=== PATIENT | female | born 1980 | race Caucasian/White ===

== ENCOUNTER 2018-02-02 16:33 | Emergency (ER) | payer BC ==
[2018-02-02] MEDS ORDERED: NA CHLORIDE 0.9% 1,000 ML ONE (16:48)
[2018-02-02 17:11] LABS: Absolute Lymphocytes (CBC) 3.8 K/uL (0.7-4.9); Absolute Monocytes 0.5 K/uL (0.1-1.3); Basophils % 0.6 % (0-1.3); Eosinophils % 1.5 % (0-4.4); Hematocrit 39.1 % (36.0-45.0); Lymphocytes % 45.1 % (15.3-44.8); MCH 28.4 pg (27.0-35.0); MCV 85.8 fL (80-100); Monocytes % 5.6 % (3.3-12.3); RBC Red Blood Cell Count 4.56 M/uL (3.86-4.86)
[2018-02-02 17:12] LABS: Protime INR 1.03
--- NOTE | 2018-02-02 17:13 | RAD REPORT ---
EXAM DESCRIPTION: CT - Head Brain Wo Cont - 02/02/2018 5:03 pm CLINICAL HISTORY: Syncope with head injury COMPARISON: None. TECHNIQUE: Computed axial tomography of the head was obtained. IV contrast was not requested. All CT scans are performed using dose optimization technique as appropriate and may include automated exposure control or mA/KV adjustment according to patient size. FINDINGS: An intracranial bleed is not seen . The ventricles are normal in caliber. No extra-axial fluid collection is noted. Fluid within the sinuses/ mastoids is not seen. IMPRESSION: No acute intracranial abnormality is seen. If patient's symptoms persist MRI of the bra in would be recommended.
[2018-02-02 17:18] LABS: Potassium 3.6 mEq/L (3.6-5.0)
[2018-02-02 17:21] LABS: CKMB Creatine Kinase MB 0.7 ng/ml (0.3-4.0); Magnesium 2.1 mg/dL (1.8-2.5)
--- NOTE | 2018-02-02 17:54 | EKG ---
Test Date: 2018-02-02 Test Time: 16:40:23 Ingredient Mixer: CAMILLE MEASUREMENT RESULTS: Intervals: Rate: 68 VA: 146 QRSD: 90 QT: 392 QTc: 416 [place]: P: 65 VA: 146 QRS: 73 T: 54 INTERPRETIVE STATEMENTS: Normal sinus rhythm Normal ECG Compared to ECG 01/04/2017 03:01:10 No significant changes Electronically Signed On 02-02-18 17:54:17 CDT by Damir Rene
[2018-02-02] MEDS ORDERED: ONDANSETRON 4 MG/2 ML VIAL ONE (18:06)
[2018-02-02 18:21] LABS: Urine Bacteria 20-50 /HPF (<20); Urine Culture Reflex Order REFLEXED; Urine Mucus 1+ /HPF (NONE SEEN); Urine RBC <5 /HPF (NONE SEEN)
--- NOTE | 2018-02-02 18:26 | EDPHYS ---
Physician Documentation [facility] Name: Malorie Boucher Age: 37 yrs Sex: Female : 1980 Arrival Date: 02/02/2018 Time: 16:34 Bed 4 Private MD: ED Physician Cristiano Mosher HPI: 02/02 16:43 This 37 yrs old Female presents to ER via EMS with complaints of Syncope. rn 16:43 The patient has experienced syncope. Onset: The symptoms/episode began/occurred just rn prior to arrival. Duration: This was a single episode. Associated signs and symptoms: Pertinent positives: diaphoresis, dizziness, lightheadedness. The patient has experienced a previous episode. Reports at urgent care, thought had UTI, told urine was clean, was sitting on bed, had syncopal episode, hit head on floor, on way here, had near syncopal episode and noted to be bradycardic, diaphoretic, and pale, currently only reports nausea. . 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 tw2 Historical: - Allergies: 16:38 PENICILLINS (rash); iw - Home Meds: 16:38 Latuda 20 mg Oral tab 1 tab once daily for Depression associated with Bipolar Disorder iw [Active]; Prozac 40 mg Oral cap 1 cap once daily for Depression associated with Bipolar Disorder, Adjunct Treatment [Active]; 16:55 Adderall XR 20 mg Oral cp24 1 cap daily may take up to 2 daily for Bipolar Disorder per tw2 patient [Active]; - PMHx: 16:38 Bipolar disorder; iw - PSHx: 16:38 Hysterectomy; Brest Reduction x2; Tear Duct Probing; Tumor Removal right ovary; iw - Immunization history:: Adult Immunizations up to date. - Family history:: not pertinent. - Social history:: Smoking status: Patient/guardian denies using tobacco. - Hospitalizations: : No recent hospitalization is reported. ROS: 16:43 Constitutional: Negative for fever, chills, and weight loss, Eyes: Negative for injury, rn pain, redness, and discharge, Cardiovascular: Negative for chest pain, palpitations, and edema, Respiratory: Negative for shortness of breath, cough, wheezing, and pleuritic chest pain, Abdomen/GI: Negative for abdominal pain, vomiting, diarrhea, and constipation, MS/Extremity: Negative for injury and deformity, Skin: Negative for injury, rash, and discoloration, Neuro: Negative for weakness, numbness, tingling, and seizure. Exam: 16:43 Constitutional: This is a well developed, well nourished patient who is awake, alert, rn pale and squinting eyes Head/Face: Normocephalic, atraumatic. Eyes: Pupils equal round and reactive to light, extra-ocular motions intact. Lids and lashes normal. Conjunctiva and sclera are non-icteric and not injected. Cornea within normal limits. Periorbital areas with no swelling, redness, or edema. ENT: pale lips Neck: Trachea midline, no thyromegaly or masses palpated, and no cervical lymphadenopathy. Supple, full range of motion without nuchal rigidity, or vertebral point tenderness. No Meningismus. Cardiovascular: Regular rate and rhythm with a normal S1 and S2. No gallops, murmurs, or rubs. Normal PMI, no JVD. No pulse deficits. Respiratory: Lungs have equal breath sounds bilaterally, clear to auscultation and percussion. No rales, rhonchi or wheezes noted. No increased work of breathing, no retractions or nasal flaring. Abdomen/GI: Soft, non-tender, with normal bowel sounds. No distension or tympany. No guarding or rebound. No evidence of tenderness throughout. Skin: Warm, dry with normal turgor. Normal color with no rashes, no lesions, and no evidence of cellulitis. MS/ Extremity: Pulses equal, no cyanosis. Neurovascular intact. Full, normal range of motion. Equal circumference. Neuro: Awake and alert, GCS 15, oriented to person, place, time, and situation. Cranial nerves II-XII grossly intact. Motor strength 5/5 in all extremities. Sensory grossly intact. Cerebellar exam normal. 18:27 ECG was reviewed by the Attending Physician. rn Vital Signs: 16:39 BP 114 / 75; Pulse 79; Resp 16 S; Temp 97.6; Pulse Ox 100% on R/A; iw 17:30 BP 103 / 71; Pulse 71; Resp 19; Pulse Ox 100% on R/A; tw2 18:19 BP 122 / 73; Pulse 75; Resp 18; Pulse Ox 100% on R/A; hb MDM: 16:36 Patient medically screened. rn 18:16 Differential Diagnosis: vasovagal episode. Data reviewed: vital signs, nurses notes, rn integrity test result(s), EKG, radiologic studies, CT scan, and as a result, I will discharge patient. 18:23 Counseling: I had a detailed discussion with the patient and/or guardian regarding: the rn historical points, exam findings, and any diagnostic results supporting the discharge/admit diagnosis, lab results, radiology results, the need for outpatient follow up, to return to the emergency department if symptoms worsen or persist or if there are any questions or concerns that arise at home. Response to treatment: the patient's symptoms have markedly improved after treatment, and as a result, I will discharge patient. Special discussion: I discussed with the patient/guardian in detail that at this point there is no indication for admission to the hospital. It is understood, however, that if the symptoms persist or worsen the patient needs to return immediately for re-evaluation. ED course: Pt feels improved, ambulatory, no abnormal vitals, urine negative except for trace blood, only symptoms are increased urinary frequency, will treat as UTI/urethritis, offered observation for syncope, patient opts to go home, has headache but negative ct scan of brain. Return precautions given and understood. . 02/02 16:42 Order name: Urine Microscopic Only rn 02/02 16:42 Order name: Basic Metabolic Panel; Complete Time: 17:34 rn 02/02 16:42 Order name: BNP; Complete Time: 17:34 rn 02/02 16:42 Order name: CBC with Diff; Complete Time: 17:34 02/02 16:42 Order name: Ckmb; Complete Time: 17:34 rn 02/02 16:42 Order name: CPK; Complete Time: 17:34 rn 02/02 16:42 Order name: CT Head Brain wo Cont; Complete Time: 17:15 02/02 16:42 Order name: Magnesium; Complete Time: 17:34 rn 02/02 16:42 Order name: Protime (+inr); Complete Time: 17:34 rn 02/02 16:42 Order name: Ptt, Activated; Complete Time: 17:34 rn 02/02 16:42 Order name: Troponin (emerg Dept Use Only); Complete Time: 17:34 02/02 16:42 Order name: EKG; Complete Time: 16:43 02/02 16:42 Order name: Cardiac monitoring; Complete Time: 16:48 rn 02/02 16:42 Order name: EKG - Nurse/Tech; Complete Time: 16:46 rn 02/02 16:42 Order name: IV Saline Lock; Complete Time: 16:46 rn 02/02 16:42 Order name: Labs collected and sent; Complete Time: 16:47 rn 02/02 16:42 Order name: NPO; Complete Time: 16:47 rn 02/02 16:42 Order name: O2 Per Protocol; Complete Time: 16:47 rn 02/02 16:42 Order name: O2 Sat Monitoring; Complete Time: 16:47 rn 02/02 16:42 Order name: Urine Dipstick-Ancillary (obtain specimen); Complete Time: 18:02 rn EC:27 Rate is 68 beats/min. Rhythm is regular. QRS [place] is Normal. TN interval is normal. QRS rn interval is normal. QT interval is normal. No Q waves. T waves are Normal. No ST changes noted. Clinical impression: Normal ECG. Interpreted by me. Administered Medications: 16:51 Drug: NS 0.9% 1000 ml Route: IV; Rate: 1000 ml; Site: right antecubital; iw 18:02 Follow up: IV Status: Completed infusion; IV Intake: 1000ml tw2 18:19 Drug: Zofran 4 mg Route: IVP; Site: right antecubital; hb 18:28 Follow up: Response: No adverse reaction; Nausea is decreased tw2 18:30 Drug: Cipro 500 mg Route: PO; tw2 18:46 Follow up: Response: No adverse reaction tw2 Point of Care Testing: Blood Glucose: 16:46 Blood Glucose: 103 mg/dL; iw Ranges: Critical Glucose Levels:Adult <50 mg/dl or >400 mg/dl <40 mg/dl or >180 mg/dl Disposition: 02/02/18 18:25 Discharged to Home. Impression: Syncope and collapse. - Condition is Stable. - Discharge Instructions: Syncope, Urethritis, Adult. - Prescriptions for Cipro 500 mg Oral Tablet - take 1 tablet by ORAL route every 12 hours for 10 days; 20 tablet. - Medication Reconciliation Form, Thank You Letter, Antibiotic Education, Prescription Opioid Use, Work release form, Family Work Release form. - Follow up: Private Physician; When: As needed; Reason: Recheck today's complaints, Re-evaluation by your physician. - Problem is new. - Symptoms have improved. Signatures: Dispatcher [employer] Joanna Sanchez, RN Cristiano Love MD MD rn Baxter, Heather, RN RN hb Wise, Tara, RN RN tw2 Corrections: (The following items were deleted from the chart) 18:47 18:25 02/02/2018 18:25 Discharged to Home. Impression: Syncope and collapse. Condition tw2 is Stable. Forms are Medication Reconciliation Form, Thank You Letter, Antibiotic Education, Prescription Opioid Use. Follow up: Private Physician; When: As needed; Reason: Recheck today's complaints, Re-evaluation by your physician. Problem is new. Symptoms have improved. rn
--- NOTE | 2018-02-02 18:26 | ER ---
Nurse's Notes [facility] Name: Malorie Boucher Age: 37 yrs Sex: Female : 1980 Arrival Date: 02/02/2018 Time: 16:34 Bed 4 Private MD: Diagnosis: Syncope and collapse Presentation: 02/02 16:35 Presenting complaint: EMS states: pt was at urgent care, was being seen for UTI, pt had iw syncopal episode and fell off exam table, pt hit head on floor, staff states pt was awake when they went in room, EMS reports pt was hypotensive at 80s systolic, diaphoretic, cool, clammy, pt A\T\OX4, symptoms resolving, RH=586/75 upon arrival to ER. Transition of care: patient was not received from another setting of care. Onset of symptoms was February 02, 2018. Initial Sepsis Screen: Does the patient meet any 2 criteria? No. Patient's initial sepsis screen is negative. Does the patient have a suspected source of infection? No. Patient's initial sepsis screen is negative. Care prior to arrival: Glucose check: 85. 16:35 Method Of Arrival: EMS: [facility] iw 16:35 Acuity: SABAS 3 iw Triage Assessment: 16:58 General: Appears in no apparent distress. Neuro: Reports a syncopal episode. 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 tw2 Historical: - Allergies: 16:38 PENICILLINS (rash); iw - Home Meds: 16:38 Latuda 20 mg Oral tab 1 tab once daily for Depression associated with Bipolar Disorder iw [Active]; Prozac 40 mg Oral cap 1 cap once daily for Depression associated with Bipolar Disorder, Adjunct Treatment [Active]; 16:55 Adderall XR 20 mg Oral cp24 1 cap daily may take up to 2 daily for Bipolar Disorder per tw2 patient [Active]; - PMHx: 16:38 Bipolar disorder; iw - PSHx: 16:38 Hysterectomy; Brest Reduction x2; Tear Duct Probing; Tumor Removal right ovary; iw - Immunization history:: Adult Immunizations up to date. - Family history:: not pertinent. - Social history:: Smoking status: Patient/guardian denies using tobacco. - Hospitalizations: : No recent hospitalization is reported. Screenin:54 Abuse screen: Denies threats or abuse. Nutritional screening: No deficits noted. tw2 Tuberculosis screening: No symptoms or risk factors identified. Fall Risk None identified. Assessment: 16:55 General: Appears in no apparent distress. obese, Behavior is calm, cooperative, tw2 appropriate for age. Pain: Complains of pain in scalp. Neuro: Level of Consciousness is awake, alert, obeys commands, Oriented to person, place, time, situation. Cardiovascular: Denies chest pain, shortness of breath, Heart tones S1 S2 Capillary refill < 3 seconds Patient's skin is warm and dry. Rhythm is regular. Respiratory: Airway is patent Respiratory effort is even, unlabored, Respiratory pattern is regular, symmetrical, Breath sounds are clear bilaterally. GI: No signs and/or symptoms were reported involving the gastrointestinal system. Abdomen is flat, Bowel sounds present X 4 quads. : No signs and/or symptoms were reported regarding the genitourinary system. EENT: No signs and/or symptoms were reported regarding the EENT system. Derm: No signs and/or symptoms reported regarding the dermatologic system. Skin is intact, is healthy with good turgor, Skin temperature is warm. Musculoskeletal: Range of motion: intact in all extremities. 17:30 Reassessment: Patient appears in no apparent distress at this time. No changes from tw2 previously documented assessment. Patient and/or family updated on plan of care and expected duration. Pain level reassessed. Patient is alert, oriented x 3, equal unlabored respirations, skin warm/dry/pink. 18:19 Reassessment: Patient appears in no apparent distress at this time. No changes from hb previously documented assessment. Patient and/or family updated on plan of care and expected duration. Pain level reassessed. Patient is alert, oriented x 3, equal unlabored respirations, skin warm/dry/pink. Vital Signs: 16:39 BP 114 / 75; Pulse 79; Resp 16 S; Temp 97.6; Pulse Ox 100% on R/A; iw 17:30 BP 103 / 71; Pulse 71; Resp 19; Pulse Ox 100% on R/A; tw2 18:19 BP 122 / 73; Pulse 75; Resp 18; Pulse Ox 100% on R/A; hb ED Course: 16:34 Patient arrived in ED. iw 16:35 Arm band placed on. tw2 16:35 Placed in gown. Bed in low position. Side rails up X2. groundwater monitoring technician on. Pulse ox on. tw2 NIBP on. Warm blanket given. 16:36 Cristiano Mosher MD is Attending Physician. rn 16:37 Triage completed. iw 16:45 Initial lab(s) drawn, by me, sent to lab. Inserted saline lock: 20 gauge in right iw antecubital area, using aseptic technique. Blood collected. 16:48 EKG done, by mechanical manufacturing technician. reviewed by Cristiano Mosher MD. at1 16:53 Pauly Rachel RN is Primary Nurse. tw2 16:58 No provider procedures requiring assistance completed. tw2 17:03 CT Head Brain wo Cont In Process Unspecified. EDMS 18:06 Urine collected: clean catch specimen, cloudy, joão colored. jb1 18:31 Awaitin minutes ABX check prior to discharge. tw2 18:47 IV discontinued, intact, bleeding controlled, No redness/swelling at site. Pressure tw2 dressing applied. Administered Medications: 16:51 Drug: NS 0.9% 1000 ml Route: IV; Rate: 1000 ml; Site: right antecubital; iw 18:02 Follow up: IV Status: Completed infusion; IV Intake: 1000ml tw2 18:19 Drug: Zofran 4 mg Route: IVP; Site: right antecubital; hb 18:28 Follow up: Response: No adverse reaction; Nausea is decreased tw2 18:30 Drug: Cipro 500 mg Route: PO; tw2 18:46 Follow up: Response: No adverse reaction tw2 Point of Care Testing: Blood Glucose: 16:46 Blood Glucose: 103 mg/dL; iw Ranges: Intake: 18:02 IV: 1000ml; Total: 1000ml. tw2 Outcome: 18:25 Discharge ordered by . rn 18:46 Discharged to home ambulatory, with significant other. tw2 18:46 Condition: stable 18:46 Discharge instructions given to patient, significant other, Instructed on discharge instructions, follow up and referral plans. medication usage, Demonstrated understanding of instructions, follow-up care, medications, Prescriptions given X 1. 18:47 Patient left the ED. tw2 Addendum: 02/08/2018 15:42 Addendum: Culture Results: Positive urine culture. Bacteria is resistant to, has i w intermediate sensitivity, or is not tested against prescribed antibiotics. Report given to ALEM for further evaluation and then to geological technician for follow up with patient. Phone call Attempt #1 pt did not answer, unable to leave voice mail. Signatures: Dispatcher [employer] Harjit Patel jb1 Joanna Mcgill RN RN iw Cristiano Mosher MD MD rn gonzales, Amanda, algebra teacher EKG Tat1 Diana Lawler RN RN Pauly Rachel RN RN tw2 Corrections: (The following items were deleted from the chart) 02/02 16:52 16:39 BP 114 / 75; Pulse 79bpm; Resp 16bpm; Spontaneous; Pulse Ox 100% RA; iw iw
[2018-02-02] MEDS ORDERED: CIPROFLOXACIN HCL 500 MG TAB ONE (18:30)
[2018-02-02 19:03] VITALS: O2SAT 100
[2018-02-02 19:04] VITALS: TEMP 97.6
[2018-02-02 19:05] VITALS: BP 122/73
== END 2018-02-02 18:47 | disposition home or self-care (01) ==
LOC: ER 16:33
DX: R55 Syncope and collapse (principal); F31.9 Bipolar disorder, unspecified; Z88.0 Allergy status to penicillin
CPT/HCPCS: 36415; 70450; 80048; 81015; 82550; 82553; 82962; 83735; 83880; 84484; 85025; 85610; 85730; 87077; 87086; 87088; 87186; 93005; 96361; 96374; 99285; J2405; J7030

== ENCOUNTER 2021-03-25 03:31 | Emergency (ER) | payer BC ==
--- OUTSIDE RECORDS SUMMARY | 2021-03-25 03:34 | XMS REPORT | Continuity of Care Document ---
:1980 Author Organization [facility] t Address [address] [place] [address] Care Team Providers Name Role Phone Lab, Fam Pob I Attending Clinician Unavailable Doctor Unassigned, Name Attending Clinician Unavailable Problems This patient has no known problems. Allergies, Adverse Reactions, Alerts This patient has no known allergies or adverse reactions. Medications This patient has no known medications. Procedures This patient has no known procedures. Encounters Start End Encounter Admission Attending Care Care Encounter Source Date/Time Date/Time Type Type Clinicians Facility Department ID 2020-04-19 2020-04-19 Laboratory Lab, [facility] [id number] 09:44:33 10:04:33 Only Fam Pob I Health [id number] [place] [id number] [place] [id number] [address] 2020-04-19 2020-04-19 Letter Doctor MADDIE [id number] 00:00:00 00:00:00 (Out) UnassignedSABINA [id number] [place] [facility] [id number] 044 Results This patient has no known results.
[2021-03-25] MEDS ORDERED: NA CHLORIDE 0.9% 1,000 ML ONE (05:02)
[2021-03-25] MEDS ORDERED: ONDANSETRON 4 MG/2 ML VIAL ONE (05:02)
--- NOTE | 2021-03-25 06:18 | EDPHYS ---
Physician Documentation [facility] Name: Malorie Boucher Age: 40 yrs Sex: Female : 1980 Arrival Date: 03/25/2021 Time: 03:33 Bed 5 Private MD: ED Physician Yovani eMans HPI: 03/25 04:40 This 40 yrs old Female presents to ER via EMS with complaints of Fall Injury. mh7 04:40 Details of fall: The patient fell from an upright position, while walking. Onset: The mh7 symptoms/episode began/occurred just prior to arrival, today. Associated injuries: The patient sustained injury to the head, contusion, neck injury, pain. Severity of symptoms: At their worst the symptoms were moderate, earlier today, in the emergency department the symptoms have improved, moderately. [employer]: 03:43 LMP N/A - Hysterectomy ea Historical: - Allergies: 03:43 PENICILLINS (rash); ea - Home Meds: 03:43 Adderall XR 20 mg Oral cp24 1 cap daily may take up to 2 daily for Bipolar Disorder per ea patient [Active]; - PMHx: 03:43 Bipolar disorder; ea - Immunization history:: Adult Immunizations up to date. - Immunization history: Last tetanus immunization: unknown. - Social history:: Smoking status: Patient denies any tobacco usage or history of. ROS: 04:41 Constitutional: Negative for fever, chills, and weight loss, Eyes: Negative for injury, mh7 pain, redness, and discharge, ENT: Negative for injury, pain, and discharge, Cardiovascular: Negative for chest pain, palpitations, and edema, Respiratory: Negative for shortness of breath, cough, wheezing, and pleuritic chest pain, Abdomen/GI: Negative for abdominal pain, nausea, vomiting, diarrhea, and constipation, Back: Negative for injury and pain, : Negative for injury, bleeding, discharge, and swelling. 04:41 Skin: Negative for injury, rash, and discoloration, Neuro: Negative for headache, weakness, numbness, tingling, and seizure, Psych: Negative for depression, anxiety, suicide ideation, homicidal ideation, and hallucinations, Allergy/Immunology: Negative for hives, rash, and allergies, Endocrine: Negative for neck swelling, polydipsia, polyuria, polyphagia, and marked weight changes, Hematologic/Lymphatic: Negative for swollen nodes, abnormal bleeding, and unusual bruising. 04:41 MS/extremity: Positive for right shoulder injury. Exam: 04:41 Constitutional: This is a well developed, well nourished patient who is awake, alert, mh7 and in no acute distress. Head/Face: Normocephalic, atraumatic. Eyes: Pupils equal round and reactive to light, extra-ocular motions intact. Lids and lashes normal. Conjunctiva and sclera are non-icteric and not injected. Cornea within normal limits. Periorbital areas with no swelling, redness, or edema. ENT: Nares patent. No nasal discharge, no septal abnormalities noted. Tympanic membranes are normal and external auditory canals are clear. Oropharynx with no redness, swelling, or masses, exudates, or evidence of obstruction, uvula midline. Mucous membranes moist. Chest/axilla: Normal chest wall appearance and motion. Nontender with no deformity. No lesions are appreciated. Cardiovascular: Regular rate and rhythm with a normal S1 and S2. No gallops, murmurs, or rubs. Normal PMI, no JVD. No pulse deficits. Respiratory: Lungs have equal breath sounds bilaterally, clear to auscultation and percussion. No rales, rhonchi or wheezes noted. No increased work of breathing, no retractions or nasal flaring. Abdomen/GI: Soft, non-tender, with normal bowel sounds. No distension or tympany. No guarding or rebound. No evidence of tenderness throughout. Back: No spinal tenderness. No costovertebral tenderness. Full range of motion. 04:41 Skin: Warm, dry with normal turgor. Normal color with no rashes, no lesions, and no evidence of cellulitis. 04:41 Neuro: Awake and alert, GCS 15, oriented to person, place, time, and situation. Cranial nerves II-XII grossly intact. Motor strength 5/5 in all extremities. Sensory grossly intact. Cerebellar exam normal. Normal gait. Psych: Awake, alert, with orientation to person, place and time. Behavior, mood, and affect are within normal limits. 04:41 Musculoskeletal/extremity: Extremities: noted in the right shoulder: pain, tenderness, ROM: limited active range of motion due to pain, in the right shoulder, limited passive range of motion due to pain, in the right shoulder, Circulation is intact in all extremities. Sensation intact. Compartment Syndrome exam of affected extremity: is normal. no numbness, no tingling, no sensation deficit, no palor, no weak pulses, Joints: the right shoulder displays painful range of motion, tenderness, Weight bearing: able to fully bear weight, Tendon exam: specific tendon testing normal through active and passive range of motion Vital Signs: 03:41 BP 137 / 90; Pulse 74; Resp 19; Temp 98; Pulse Ox 100% ; Weight 75.3 kg; Height 5 ft. 5 ea in. (165.10 cm); 05:35 BP 116 / 73; Pulse 70; Resp 18; Pulse Ox 98% on R/A; ea 06:26 BP 115 / 75; Pulse 75; Resp 16; Pulse Ox 98% ; rr5 03:41 Body Mass Index 27.62 (75.30 kg, 165.10 cm) ea Indu Coma Score: 03:39 Eye Response: spontaneous(4). Verbal Response: oriented(5). Motor Response: obeys ea commands(6). Total: 15. 06:26 Eye Response: spontaneous(4). Verbal Response: oriented(5). Motor Response: obeys rr5 commands(6). Total: 15. Trauma Score (Adult): 03:39 Eye Response: spontaneous(1); Verbal Response: oriented(1); Motor Response: obeys ea commands(2); Systolic BP: > 89 mm Hg(4); Respiratory Rate: 10 to 29 per min(4); Indu Score: 15; Trauma Score: 12 06:26 Eye Response: spontaneous(1); Verbal Response: oriented(1); Motor Response: obeys rr5 commands(2); Systolic BP: > 89 mm Hg(4); Respiratory Rate: 10 to 29 per min(4); Indu Score: 15; Trauma Score: 12 MDM: 06:15 Differential diagnosis: closed head injury, contusion, fracture, Concussion. Data [facility] reviewed: vital signs, nurses notes, radiologic studies, CT scan, plain films. Counseling: I had a detailed discussion with the patient and/or guardian regarding: the historical points, exam findings, and any diagnostic results supporting the discharge/admit diagnosis, radiology results, the need for outpatient follow up, to return to the emergency department if symptoms worsen or persist or if there are any questions or concerns that arise at home. Response to treatment: the patient's symptoms have resolved after treatment, the patient's blood pressure is in an acceptable range, mental status has returned to baseline, the patient no longer shows bradycardia, the patient is not short of breath, the patient is not tachycardic, the patient's pain is gone, the patient's temperature has normalized. 06:18 Patient medically screened. [facility] 03/25 03:40 Order name: CT Head C Spine 03/25 04:21 Order name: Shoulder Right (2 View) XRAY [facility] Administered Medications: 04:45 Drug: Zofran (Ondansetron) 4 mg Route: IVP; Site: right antecubital; rr5 06:29 Follow up: Response: No adverse reaction rr5 04:46 Drug: NS 0.9% 1000 ml Route: IV; Rate: 1000 ml; Site: right antecubital; rr5 06:29 Follow up: Response: No adverse reaction; IV Status: Completed infusion; IV Intake: rr5 1000ml 06:06 Drug: Tylenol 1000 mg Route: PO; ea 06:29 Follow up: Response: No adverse reaction rr5 Disposition: 03/25/21 06:18 Discharged to Home. Impression: Head Injury, Head Contusion, Cervical Strain, Shoulder Contusion, Concussion. - Condition is Stable. - Discharge Instructions: Shoulder Pain, [id number], Concussion, Adult, [id number], Head Injury, Adult, Bsvn-pa-Crhy, Facial or Scalp Contusion, [id number]. - Prescriptions for ondansetron 4 mg Oral tablet,disintegrating - place 1 tablet by TRANSLINGUAL route every 8 hours As needed; 6 tablet. - Medication Reconciliation Form, Thank You Letter, Antibiotic Education, Prescription Opioid Use, Work release form form. - Follow up: Private Physician; When: 1 - 2 days; Reason: Worsening of condition, Recheck today's complaints, Continuance of care, Re-evaluation by your physician. Follow up: Rashi Caro MD; When: 1 - 2 days; Reason: Worsening of condition, Recheck today's complaints. - Problem is new. - Symptoms have improved. Signatures: Dispatcher [employer] EDArabella Kidd RN RN ea Roque, Raymond, RN RN rr5 Yovani Means MD MD mh7 Corrections: (The following items were deleted from the chart) 06:29 06:18 03/25/2021 06:18 Discharged to Home. Impression: Head Injury; Head Contusion; rr5 Cervical Strain; Shoulder Contusion; Concussion. Condition is Stable. Forms are Medication Reconciliation Form, Thank You Letter, Antibiotic Education, Prescription Opioid Use. Follow up: Private Physician; When: 1 - 2 days; Reason: Worsening of condition, Recheck today's complaints, Continuance of care, Re-evaluation by your physician. Follow up: Rashi Caro; When: 1 - 2 days; Reason: Worsening of condition, Recheck today's complaints. Problem is new. Symptoms have improved. mh7
--- NOTE | 2021-03-25 06:18 | ER ---
Nurse's Notes [facility] Name: Malorie Boucher Age: 40 yrs Sex: Female : 1980 Arrival Date: 03/25/2021 Time: 03:33 Bed 5 Private MD: Diagnosis: Head Injury;Head Contusion;Cervical Strain;Shoulder Contusion;Concussion Presentation: 03/25 03:34 Chief complaint: EMS states: Reported to EMS that she went to speak to her son, tripped ea over a box fell onto carpet doris reported she may have lost consciousness for maybe thirty seconds. Complaining of neck pain. Care prior to arrival: Zofran 4 IVP per EMS, c collar. Mechanism of Injury: Fall from standing position. Trauma event details: Injury occurred in the [facility], Injury occurred: at home. Injury occurred: March 25, 2021. 03:34 Acuity: SABAS 3 ea 03:34 Method Of Arrival: EMS: [facility] ea 03:41 Coronavirus screen: At this time, the client does not indicate any symptoms associated ea with coronavirus-19. Ebola Screen: No symptoms or risks identified at this time. Initial Sepsis Screen: Does the patient meet any 2 criteria? No. Patient's initial sepsis screen is negative. Does the patient have a suspected source of infection? No. Patient's initial sepsis screen is negative. Risk Assessment: Do you want to hurt yourself or someone else? Patient reports no desire to harm self or others. Onset of symptoms was March 25, 2021. 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 N/A - Hysterectomy ea Trauma Activation: Alert Physician: ED Physician; Name: ; Notified At: ; Arrived At: Physician: General Surgeon; Name: ; Notified At: ; Arrived At: Physician: Radiology; Name: ; Notified At: ; Arrived At: Physician: Respiratory; Name: ; Notified At: ; Arrived At: Physician: Lab; Name: ; Notified At: ; Arrived At: Historical: - Allergies: 03:43 PENICILLINS (rash); ea - Home Meds: 03:43 Adderall XR 20 mg Oral cp24 1 cap daily may take up to 2 daily for Bipolar Disorder per ea patient [Active]; - PMHx: 03:43 Bipolar disorder; ea - Immunization history:: Adult Immunizations up to date. - Immunization history: Last tetanus immunization: unknown. - Social history:: Smoking status: Patient denies any tobacco usage or history of. Screenin:37 Abuse screen: Denies threats or abuse. Nutritional screening: No deficits noted. ea Tuberculosis screening: No symptoms or risk factors identified. Fall Risk IV access (20 points). Primary Survey: 03:38 NO uncontrolled hemorrhage observed. A: The patient is alert. Airway: patent. ea Breathing/Chest: Respiratory pattern: regular, Respiratory effort: spontaneous, unlabored. Circulation: Skin color: pink, Skin temperature: warm. Disability Alert. Exposure/Environment: Obvious injury(ies) are noted at this time: pt complaining of pain to neck and right shoulder. 04:38 Reassessment Airway Airway Patent Breathing/Chest Respiratory pattern Regular ea Respiratory effort Spontaneous Unlabored. 05:30 Reassessment Airway Airway Patent Breathing/Chest Respiratory pattern Regular rr5 Respiratory effort Spontaneous Unlabored Chest inspection Symmetrical Disability Alert. Secondary Survey: 03:43 HEENT: Head Other pt reports she is having pain in base of skull. ea Assessment: 03:41 General: Appears uncomfortable, Behavior is appropriate for age. Pain: Complains of ea pain in base of the skull. Neuro: Level of Consciousness is awake, alert, obeys commands, Oriented to person, place, time. Cardiovascular: Patient's skin is warm and dry. Respiratory: Airway is patent Respiratory effort is even, unlabored, Respiratory pattern is regular, symmetrical. Derm: Skin is pink, warm \T\ dry. 04:30 Reassessment: Patient and/or family updated on plan of care and expected duration. Pain ea level reassessed. Patient is alert, oriented x 3, equal unlabored respirations, skin warm/dry/pink. 05:33 Reassessment: Patient and/or family updated on plan of care and expected duration. Pain ea level reassessed. Patient is alert, oriented x 3, equal unlabored respirations, skin warm/dry/pink. 06:10 Reassessment: Patient appears in no apparent distress at this time. c spine cleared by rr5 provider. 06:28 Reassessment: Patient appears in no apparent distress at this time. Patient is alert, rr5 oriented x 3, equal unlabored respirations, skin warm/dry/pink. discharge instruction given and explained without complaints made. Vital Signs: 03:41 BP 137 / 90; Pulse 74; Resp 19; Temp 98; Pulse Ox 100% ; Weight 75.3 kg; Height 5 ft. 5 ea in. (165.10 cm); 05:35 BP 116 / 73; Pulse 70; Resp 18; Pulse Ox 98% on R/A; ea 06:26 BP 115 / 75; Pulse 75; Resp 16; Pulse Ox 98% ; rr5 03:41 Body Mass Index 27.62 (75.30 kg, 165.10 cm) ea Indu Coma Score: 03:39 Eye Response: spontaneous(4). Verbal Response: oriented(5). Motor Response: obeys ea commands(6). Total: 15. 06:26 Eye Response: spontaneous(4). Verbal Response: oriented(5). Motor Response: obeys rr5 commands(6). Total: 15. Trauma Score (Adult): 03:39 Eye Response: spontaneous(1); Verbal Response: oriented(1); Motor Response: obeys ea commands(2); Systolic BP: > 89 mm Hg(4); Respiratory Rate: 10 to 29 per min(4); Indu Score: 15; Trauma Score: 12 06:26 Eye Response: spontaneous(1); Verbal Response: oriented(1); Motor Response: obeys rr5 commands(2); Systolic BP: > 89 mm Hg(4); Respiratory Rate: 10 to 29 per min(4); Indu Score: 15; Trauma Score: 12 ED Course: 03:33 Patient arrived in ED. ea 03:36 Yovani Means MD is Attending Physician. 7 03:37 Triage completed. ea 03:38 Patient maintains SpO2 saturation greater than 95% on room air. Thermoregulation: warm ea blanket given to patient. 03:40 Arm band placed on right wrist. Patient placed in an exam room, on a stretcher, on ea pulse oximetry. 03:43 Patient has correct armband on for positive identification. Bed in low position. Call ea light in reach. Side rails up X2. 03:45 Arabella Peña RN is Primary Nurse. ea 04:03 CT Head C Spine In Process Unspecified. EDMS 05:40 Shoulder Right (2 View) XRAY In Process Unspecified. EDMS 06:16 Rashi Crao MD is Referral Physician. mh7 06:27 No provider procedures requiring assistance completed. IV discontinued, intact, rr5 bleeding controlled, No redness/swelling at site. Pressure dressing applied. Administered Medications: 04:45 Drug: Zofran (Ondansetron) 4 mg Route: IVP; Site: right antecubital; rr5 06:29 Follow up: Response: No adverse reaction rr5 04:46 Drug: NS 0.9% 1000 ml Route: IV; Rate: 1000 ml; Site: right antecubital; rr5 06:29 Follow up: Response: No adverse reaction; IV Status: Completed infusion; IV Intake: rr5 1000ml 06:06 Drug: Tylenol 1000 mg Route: PO; ea 06:29 Follow up: Response: No adverse reaction rr5 Intake: 06:29 IV: 1000ml; Total: 1000ml. rr5 Output: 06:26 Urine: 0ml; Total: 0ml. rr5 Outcome: 05:30 Patient's length of stay in the Emergency Department was greater than 2 hours. provider rr5 reviewPatient's length of stay extended due to 06:18 Discharge ordered by . [facility] 06:27 Discharged to home ambulatory. rr5 06:27 Condition: stable 06:27 Discharge instructions given to patient, Instructed on discharge instructions, follow up and referral plans. medication usage, Demonstrated understanding of instructions, follow-up care, medications, Prescriptions given X 1. 06:29 Patient left the ED. rr5 Signatures: Dispatcher [employer] EDMS Arabella Peña RN RN ea Roque, Raymond, RN RN rr5 Yovani Means MD MD [facility]
[2021-03-25] MEDS ORDERED: ACETAMINOPHEN 500 MG TAB ONE (06:21)
[2021-03-25 06:42] VITALS: TEMP 98
[2021-03-25 06:44] VITALS: O2SAT 98
[2021-03-25 06:45] VITALS: BP 115/75
--- NOTE | 2021-03-25 12:01 | RAD REPORT ---
EXAM DESCRIPTION: RAD - Shoulder Right 2 View - 03/25/2021 5:40 am CLINICAL HISTORY: Right shoulder pain FINDINGS: No fracture or dislocation is seen.
--- NOTE | 2021-03-26 12:37 | RAD REPORT ---
EXAM DESCRIPTION: CT - Head C Spine Mpr Wo Con - 03/25/2021 6:17 am CLINICAL HISTORY: 40 years Female PAIN status post trip and fall onto carpeted floor TECHNIQUE: Multiple axial CT images of the brain and cervical spine were performed followed by sagit jay and coronal reconstructed images. The CT study is performed according to ALARA (as low as reasona marcelo achievable) or ALARA/IMAGE GENTLY, with automatic adjustment of mA and/or kV according to patient size. Performed on: 03/25/2021 at 3:48 AM COMPARISON: None. FINDINGS: CT HEAD: There is no evidence of mass, acute mass effect or midline shift. There are no acute extra-axial flui d collections. There is no evidence of acute intracranial hemorrhage. The cerebral sulci and ventricles are normal in size and configuration. There are no focal abnormal areas of increased or decreased attenuation. There is no significant mucosal thickening of the paranasal sinuses. The mastoid air cells are clear. The orbital contents are grossly unremarkable. No acute osseous abnormalities are identified. No focal soft tissue abnormalities are identified. CT CERVICAL SPINE: The cervical vertebrae are normal in height. There is straightening of the normal cervical lordosis. The disc spaces are well preserved in height. Bone mineralization is normal. The atlanto-axial a rticulation is preserved and the odontoid process is intact. There is normal alignment of the facet joints on the parasagittal images. There are no significant de generative changes of the cervical spine. There is no evidence of acute fracture or subluxation. There is no significant canal stenosis. Ther e is no significant neural foraminal stenosis. The paravertebral and paraspinal soft tissues are un remarkable. The lung apices are clear. IMPRESSION: CT HEAD: 1. There is no evidence of acute intracranial pathology. CT CERVICAL SPINE: 1. No evidence of acute osseous injury involving the cervical spine. 2. Straightening of the normal cervical lordosis. Electronically signed by: Ade Alan DO 03/25/2021 4:55 AM CDT Due to temporary technical issues with the PACS/Fluency reporting system, reports are being signed by the in house radiologist without review as a courtesy to ensure prompt reporting. The interpreting r adiologist is fully responsible for the content of the report.
== END 2021-03-25 06:29 | disposition home or self-care (01) ==
LOC: ER 03:31
DX: S06.0X0A Concussion without loss of consciousness, initial encounter (principal); S16.1XXA Strain of muscle, fascia and tendon at neck level, initial encounter; S40.011A Contusion of right shoulder, initial encounter; W19.XXXA Unspecified fall, initial encounter; F31.9 Bipolar disorder, unspecified
CPT/HCPCS: 96361; 70450; 72125; 73030; 96374; 99284; J7030; J2405; G0390